=== PATIENT | female | born 2000 ===

== ENCOUNTER 2024-06-25 15:05 | Emergency (ER) | payer SELFPAY ==
[~2024-06-25] VITALS: Ht 157.5 cm; Wt 106.8 kg
[2024-06-25 15:09] VITALS: BP 154/105; PULSE 114; RESP 18; TEMP 98.5; O2SAT 99
== END 2024-06-25 16:00 | disposition left against medical advice (07) ==
LOC: ER 15:06
DX: N93.8 Other specified abnormal uterine and vaginal bleeding (principal); Z88.0 Allergy status to penicillin; Z53.21 Procedure and treatment not carried out due to patient leaving prior to being seen by health care provider